=== PATIENT | female | born 1960 | race Caucasian/White ===

== ENCOUNTER → 2022-07-30 13:58 | Outpatient (BNVA) | payer OTHER, SELFPAY | PROVIDERS: PCP Internal Medicine; Visit Provider Nurse Practitioner Family | DX: M51.36 Other intervertebral disc degeneration, lumbar region (principal) ==

== ENCOUNTER 2022-09-02 14:48 | Outpatient (REF) | payer OTHER, SELFPAY ==
--- NOTE | ~2022-09-02 | MR_ITS ---
EXAMINATION: MR LUMBAR SPINE WITHOUT CONTRAST CLINICAL INFORMATION: Right leg radiculopathy and low back pain. COMPARISON: None. TECHNIQUE: Multiplanar, multisequence imaging was obtained. FINDINGS: VERTEBRAL BODIES AND PARASPINAL STRUCTURES: There is a mild leftward curvature of the lumbar spine. The marrow signal is homogeneous. There is fgck-cx-yhpxpzqn disc space narrowing and reduced intradiscal signal at the L2-L3 level. No compression fractures or subluxations are seen. No marrow or soft tissue edema is identified. The paraspinal soft tissues appear normal. CONUS MEDULLARIS AND CAUDA EQUINE: The distal cord, conus tip, and cauda equina nerve roots are normal. SPINAL LEVELS: L1-L2: Small left paracentral disc protrusion. No nerve root impingement, central canal stenosis, or foraminal narrowing. L2-L3: Moderate loss of disc height and mild disc bulge with endplate spurring. No central canal stenosis or significant foraminal encroachment. Mild facet arthropathy. Very mild endplate edema visible. L3-L4: Rsyb-yt-dzqlamak facet arthropathy and very mild disc bulge without central canal stenosis. Mild bilateral foraminal narrowing. L4-L5: Moderate facet arthropathy and minimal annular bulge. No central canal stenosis or foraminal narrowing. L5-S1: No disc pathology. Severe facet arthrosis. No central canal stenosis or foraminal narrowing. MR/MR lumbar spine wo con IMPRESSION: Small left paracentral disc protrusion at the L1-L2 level. Moderate loss of disc height at the L2-L3 level with very mild endplate edema, a mild disc bulge, and endplate spurring. No central canal stenosis. Moderate facet arthropathy at the L4-L5 level and severe facet arthropathy at the L5-S1 level.
== END 2022-09-02 14:49 | disposition home or self-care (01) ==
LOC: HO.MRI 14:48
PROVIDERS: Visit Provider Nurse Practitioner Family
DX: M47.26 Other spondylosis with radiculopathy, lumbar region (principal); M54.41 Lumbago with sciatica, right side; M51.36 Other intervertebral disc degeneration, lumbar region; G89.29 Other chronic pain
CPT/HCPCS: 72148

== ENCOUNTER 2022-10-16 06:09 | Outpatient (REF) | payer OTHER, SELFPAY ==
--- NOTE | ~2022-10-16 | FL_ITS ---
EXAMINATION: XR FLUOROSCOPY WITH IMAGES CLINICAL INFORMATION: M47.816 - Spondylosis without myelopathy or radiculopathy, lumbar region COMPARISON: MR lumbar spine 09/02/2022 TECHNIQUE: Fluoroscopy Supervised By: Dr. Petey Alicea. Fluoroscopy Time: 0.2 minutes. Cumulative Dose: 7.2 mGy. DAP: 0.754 Gycm2. Images: 1. FINDINGS: There are spinal needles overlying the outer right L3, L4, and L5 neural foramen. There is contrast seen in the respective nerve sheaths. Some early transforaminal epidural extension is suggested. No visible vascular communication. FL/FL guidance in treatment room IMPRESSION: Fluoroscopy for pain management procedures.
== END 2022-10-16 06:10 | disposition home or self-care (01) ==
LOC: CF 06:09
PROVIDERS: Visit Provider Internal Medicine
DX: M47.816 Spondylosis without myelopathy or radiculopathy, lumbar region (principal)
CPT/HCPCS: 64493; 64494

== ENCOUNTER → 2022-10-18 10:07 | Outpatient (BNVA) | payer OTHER, SELFPAY | PROVIDERS: PCP Internal Medicine; Visit Provider Nurse Practitioner Family | DX: Z13.89 Encounter for screening for other disorder (principal) ==

== ENCOUNTER 2023-01-01 10:45 | Day surgery (SDC) | payer OTHER, SELFPAY ==
--- NOTE | ~2023-01-01 | FL_ITS ---
EXAMINATION: XR FLUOROSCOPY WITH IMAGES CLINICAL INFORMATION: Sprint L5 right. COMPARISON: None available. TECHNIQUE: Fluoroscopy Supervised By: Dr. Alicea. Fluoroscopy Time: 0.1 minute. Cumulative Dose: 7.76 mGy. DAP: 1.15 Gycm2. Images: 2. FINDINGS: Images demonstrate probe placement adjacent to the right lateral L5 vertebrae. FL/FL guidance in OR IMPRESSION: Fluoroscopy guidance for pain management procedure.
[2023-01-01 11:14] VITALS: BMI 38.7
[2023-01-01 13:33] VITALS: BP 137/69; PULSE 77; RESP 16; TEMP 36.4; O2SAT 94
--- NOTE | 2023-01-01 16:28 | P.BOP_ITS ---
Brief Operative Note Date of Service: 01/01/23 Pre-op diagnosis: Lumbar spondylosis, chronic intractable low back pain Post-op diagnosis: same Procedure: Temporary right L4 medial branch nerve stimulator placement Implants: Sprint temporary PNS system Surgeon: Petey Alicea MD Anesthesia: local Was an Diabetes Territory Manager used for this Procedure?: No Estimated blood loss (mL): 1 Pathology: none sent Condition: stable Disposition: same day
--- NOTE | 2023-01-01 16:28 | MHC.SHP ---
Pre-Procedural Eval Section A Date of Service: 01/01/23 The patient is an INPATIENT: No Changes since office visit: Yes Patient answered all questions The History & Physical has been completed within 30 days and I have reviewed it.: Yes Section B Chief Complaint: Spondylosis without myelopathy or radiculopathy, Relevant Family History (Specify if Yes): No Relevant Social History: Other (specify) Present Medications: see Short Stay Collaborative assessment Medical History: No relevant PMH History of Previous Operations: No relevant previous surgery Allergies: Allergies Allergy/AdvReac Type Severity Reaction Status Date / Time aspirin AdvReac Gastrointestinal Verified 10/18/22 10:08 Upset morphine AdvReac Vomiting Verified 10/18/22 10:08 Review of Systems Sugical H&P ROS: Negative: Constitution, Cardiovascular and Respiratory Exam Surgical H&P Exam: Normal: HEENT, Normal: Heart and Normal: Lungs Plan Diagnosis/Plan: Unchanged I have reviewed the history and physical and performed a pertinent physical examination on my patient. No changes have occurred unless specified. Time Spent With Patient Time: Total time managing care of this patient today ____ minutes.
--- NOTE | 2023-01-01 16:28 | W.PM.OPN ---
Operative Note Operative Note Date of Service: 01/01/23 Narrative: Lumbar Medial Branch Nerve Stimulation Lead Placement, SPR (Sprint) System, Right L3 ? After the risks, benefits and alternatives were discussed with the patient and informed consent was obtained, patient was placed in the prone position and padded to foster comfort. The skin overlying the lumbosacral spine was prepped and draped in sterile fashion. Fluoroscopy was used to identify the spinous process and lamina in the center of the patient?s region of pain. After identifying and marking the intended target along the course of the medial branch nerve, the skin around the planned entry point and the subcutaneous tissues were injected with lidocaine 1%. An introducer needle and stimulating probe were assembled, inserted and advanced along the intended course of the medial branch nerve as it traverses the lamina medial and inferior to the zygapophyseal joint, taking care to maintain the proper depth of insertion as the introducer is advanced under fluoroscopic guidance. The introducer needle was delivered to a location in proximity to the nerve. Multiple stimulation parameters were used to deliver stimulation to the target medial branch nerve in concert with stimulating at multiple positions around the nerve. Nerve target acquisition was confirmed noting generation of paresthesias in the paravertebral regions corresponding to the level being stimulated. Various electrical parameter combinations were tested, and the lead location was adjusted (physically relocated) until the patient indicated paresthesia/muscle tension overlapping the distribution of the patient?s typical region of pain. The stimulating probe was removed from the introducer and a percutaneous lead was guided through the needle and delivered to a location in similar proximity to the nerve. Final location was verified with electrical stimulation and documented with fluoroscopy. The introducer needle was removed, and the exposed end of the percutaneous lead was attached to an external stimulator unit. Various electrical parameter combinations were again tested until the patient indicated paresthesia or muscle tension overlapping the distribution of the patient?s typical region of pain. After confirming that lead impedance was in the normal range, the external unit was detached, the needle was removed, and the lead was anchored at the skin. The lead was threaded into the connector block and electrical continuity and desired patient response was confirmed. The connector block was attached to the external stimulator unit. The site was covered with a sterile occlusive dressing. The patient was observed for stability of vital signs and comfort.
== END 2023-01-01 14:24 | disposition home or self-care (01) ==
PROVIDERS: PCP Internal Medicine; Visit Provider Internal Medicine
PROC: (CPT 64555; principal; 2023-01-01 11:50)
DX: M47.816 Spondylosis without myelopathy or radiculopathy, lumbar region (principal); G89.29 Other chronic pain; M54.41 Lumbago with sciatica, right side; M51.36 Other intervertebral disc degeneration, lumbar region; M54.16 Radiculopathy, lumbar region; J45.909 Unspecified asthma, uncomplicated; E11.9 Type 2 diabetes mellitus without complications; I10 Essential (primary) hypertension; E78.5 Hyperlipidemia, unspecified; E55.9 Vitamin D deficiency, unspecified; E66.9 Obesity, unspecified; Z68.38 Body mass index [BMI] 38.0-38.9, adult; L65.8 Other specified nonscarring hair loss; Z88.8 Allergy status to other drugs, medicaments and biological substances
CPT/HCPCS: 64555; C1778

== ENCOUNTER → 2023-01-07 11:24 | Outpatient (BNVA) | payer OTHER, SELFPAY | PROVIDERS: PCP Internal Medicine; Visit Provider Nurse Practitioner Family ==

== ENCOUNTER 2023-02-12 06:05 | Outpatient (REF) | payer OTHER, SELFPAY ==
--- NOTE | ~2023-02-12 | FL_ITS ---
EXAMINATION: XR FLUOROSCOPY WITH IMAGES CLINICAL INFORMATION: Sacrococcygeal disorders, not elsewhere classified. Right SI joint injection. COMPARISON: None available. TECHNIQUE: Fluoroscopy Supervised By: Dr. Petey Alicea. Fluoroscopy Time: 0.2 minutes. Cumulative Dose: 7.62 mGy. DAP: 0.813 Gycm2. Images: 2. FINDINGS: 2 digital images revealing needle position of the right SI joint for pain management. No gross bony abnormality. FL/FL guidance in treatment room IMPRESSION: Fluoroscopy was provided to referring physician for right SI joint pain management.
== END 2023-02-12 06:06 | disposition home or self-care (01) ==
LOC: CF 06:05
PROVIDERS: Visit Provider Internal Medicine
DX: M53.3 Sacrococcygeal disorders, not elsewhere classified (principal)
CPT/HCPCS: 27096

== ENCOUNTER 2023-02-12 10:08 | Outpatient (AMB) | payer OTHER, SELFPAY ==
[2023-02-12 10:31] VITALS: BP 120/78; PULSE 66; RESP 14; O2SAT 97
--- NOTE | 2023-02-12 10:31 | A.OFFVIS_ITS ---
Intake Vital Signs 02/12/23 10:31 BP 120/78 Blood Pressure Location Lt radial Position Sitting Respiration 14 Pulse 66 Pulse Source Pulse Oximeter Pulse Oximetry (%) 97 Oxygen Delivery Method Room Air Intake Visit Reasons: left theraputic SIJ inj Allergies aspirin Adverse Reaction (Verified 02/12/23 10:31) Gastrointestinal Upset morphine Adverse Reaction (Verified 02/12/23 10:31) Vomiting HPI left theraputic SIJ inj HPI Details Patient presents for scheduled procedure. Denies any recent cough, cold, infection, fever or other significant changes in medical history since last office visit. Patient requests right sided injection as that is her painful side. She does not want her left side injected. A consent for the correct side as per patient's wishes was obtained. [facility] Medical History Anxiety Asthma Chronic low back pain with right-sided sciatica Chronic pain of left elbow Chronic right shoulder pain Dyspepsia Dysphagia Hyperlipidemia Hypertension Lumbar degenerative disc disease Non-scarring alopecia Obesity (BMI 30-39.9) Plantar fasciitis, bilateral Seborrheic dermatitis Trichorrhexis nodosa Type 2 diabetes mellitus without complication Vitamin D deficiency Surgical History H/O colonoscopy (~05/01/12) H/O tubal ligation History of D&C (~2000) History of incisional hernia repair (05/25/15) Physical Exam Vital Signs: Last Vital Signs Pulse 66 02/12/23 10:31 Resp 14 02/12/23 10:31 BP 120/78 02/12/23 10:31 Pulse Ox 97 02/12/23 10:31 Oxygen Delivery Method Room Air 02/12/23 10:31 Office Procedures Joint Injection/Drain Joint Injection/Drain Details: Sacroiliac Joint Injection, Right The procedure, its benefits, and its risks were explained and written informed consent was obtained from the patient. Immediately prior to starting the procedure, a time-out safety check was conducted. The patient's identification, procedure name, procedure site, and procedure laterality were confirmed with the patient. ? Patient was placed prone on the fluoroscopy table and the lumbosacral area was prepped using ChloraPrep and draped with sterile drapein standard fashion. The C-arm was rotated in a contralateral oblique fashion until the medial border of the iliac crest no longer foreshadowed the posterior sacroiliac joint line. The skin and subcutaneous tissue was anesthetized using 1 mL of 0.75% plain lidocaine with 1.5-inch 25-gauge needle in the middle region of the joint line.? A 5-inch 22-gauge spinal needle with small bend on the tip was slowly advanced towards the joint line, coaxial to the x-ray beam. Once bony content was obtained, the needle was easily slid into the intra-articular space.? Intra- articular needle position was confirmed using lateral fluoroscopy.? A total volume of 2.5mL of solution containing 40 mg Depomedrol and rest 0.5% of bupivacaine was injected intra-articularly. The stylet was reinserted and needle was removed. The patient tolerated the procedure well. Patient denied any lower extremity weakness or numbness. Patient was observed for 30 min and was discharged after fulfilling the standard discharge criteria. Coding 09111 - Sacroiliac Procedure code (CPT) selection complete Assessment & Plan Assessment & Plan (1) Sacroiliac joint pain: Code(s): M53.3 - Sacrococcygeal disorders, not elsewhere classified Plan Patient is status post right SIJ injection. Patient tolerated procedure well and was discharged home in stable condition with discharge instructions. All questions were answered. We will follow-up via telephone or in clinic to assess response to therapy. A follow-up appointment was made during today's visit. Orders: Orders FL guidance in treatment room Today M53.3 - Sacrococcygeal disorders, not elsewhere classified Coding Level of Care Code Procedure Only Diagnoses Sacroiliac joint pain M53.3 CPT Codes Coding - Joint 9: 94127 - Sacroiliac ([id number])
== END 2023-02-12 11:29 | disposition home or self-care (01) ==
PROVIDERS: PCP Internal Medicine; Visit Provider Internal Medicine
DX: M53.3 Sacrococcygeal disorders, not elsewhere classified (principal)
CPT/HCPCS: 27096

== ENCOUNTER 2023-02-26 07:46 | Day surgery (SDC) | payer OTHER, SELFPAY ==
--- NOTE | ~2023-02-26 | FL_ITS ---
EXAMINATION: XR FLUOROSCOPY WITH IMAGES CLINICAL INFORMATION: L3 medial branch SPRINT, right. COMPARISON: None available. TECHNIQUE: Fluoroscopy Supervised By: Dr. Petey Alicea. Fluoroscopy Time: 0.0 minutes (less than 10 seconds). Cumulative Dose: 2.60 mGy. DAP: 0.307 Gycm2. Images: 3. FINDINGS: Images demonstrate probe or lead projecting over the right posterior lateral lower lumbar spine. FL/FL guidance in OR IMPRESSION: Fluoroscopic guidance for pain management procedure.
[2023-02-26 08:21] VITALS: BMI 38.4
--- NOTE | 2023-02-26 09:55 | MHC.SHP ---
Pre-Procedural Eval Section A Date of Service: 02/26/23 The patient is an INPATIENT: No Changes since office visit: Yes Patient answered all questions The History & Physical has been completed within 30 days and I have reviewed it.: No Section B Chief Complaint: Intractable back pain Relevant Family History (Specify if Yes): No Relevant Social History: Other (specify) Present Medications: see Short Stay Collaborative assessment Medical History: No relevant PMH History of Previous Operations: No relevant previous surgery Allergies: Allergies Allergy/AdvReac Type Severity Reaction Status Date / Time aspirin AdvReac Gastrointestinal Verified 02/12/23 10:31 Upset morphine AdvReac Vomiting Verified 02/12/23 10:31 Review of Systems Sugical H&P ROS: Negative: Constitution, Cardiovascular and Respiratory Exam Surgical H&P Exam: Normal: HEENT, Normal: Heart and Normal: Lungs Plan Diagnosis/Plan: Unchanged I have reviewed the history and physical and performed a pertinent physical examination on my patient. No changes have occurred unless specified. Proceed with replacement of right L3 medial branch temporary nerve stimulator. Time Spent With Patient Time: Total time managing care of this patient today ____ minutes.
[2023-02-26 09:56] VITALS: BP 136/74; PULSE 65; RESP 20; TEMP 36.5; O2SAT 95
--- NOTE | 2023-02-26 09:56 | P.BOP_ITS ---
Brief Operative Note Date of Service: 02/26/23 Pre-op diagnosis: Lumbar spondylosis, intractable low back pain Post-op diagnosis: same Procedure: Temporary right L3 medial branch nerve stimulator placement Implants: Sprint temporary PNS system Surgeon: Petey Alicea MD Anesthesia: local Was an Information Security Associate used for this Procedure?: No Estimated blood loss (mL): 1 Pathology: none sent Condition: stable Disposition: same day
--- NOTE | 2023-02-26 09:57 | W.PM.OPN ---
Operative Note Operative Note Date of Service: 02/26/23 Narrative: Lumbar Medial Branch Nerve Stimulation Lead Placement, SPR (Sprint) System, Right L3 medial branch ? After the risks, benefits and alternatives were discussed with the patient and informed consent was obtained, patient was placed in the prone position and padded to foster comfort. The skin overlying the lumbosacral spine was prepped and draped in sterile fashion. Fluoroscopy was used to identify the spinous process and lamina in the center of the patient?s region of pain. After identifying and marking the intended target along the course of the medial branch nerve, the skin around the planned entry point and the subcutaneous tissues were injected with lidocaine 1%. An introducer needle and stimulating probe were assembled, inserted and advanced along the intended course of the medial branch nerve as it traverses the lamina medial and inferior to the zygapophyseal joint, taking care to maintain the proper depth of insertion as the introducer is advanced under fluoroscopic guidance. The introducer needle was delivered to a location in proximity to the nerve. Multiple stimulation parameters were used to deliver stimulation to the target medial branch nerve in concert with stimulating at multiple positions around the nerve. Nerve target acquisition was confirmed noting generation of paresthesias in the paravertebral regions corresponding to the level being stimulated. Various electrical parameter combinations were tested, and the lead location was adjusted (physically relocated) until the patient indicated paresthesia/muscle tension overlapping the distribution of the patient?s typical region of pain. The stimulating probe was removed from the introducer and a percutaneous lead was guided through the needle and delivered to a location in similar proximity to the nerve. Final location was verified with electrical stimulation and documented with fluoroscopy. The introducer needle was removed, and the exposed end of the percutaneous lead was attached to an external stimulator unit. Various electrical parameter combinations were again tested until the patient indicated paresthesia or muscle tension overlapping the distribution of the patient?s typical region of pain. After confirming that lead impedance was in the normal range, the external unit was detached, the needle was removed, and the lead was anchored at the skin. The lead was threaded into the connector block and electrical continuity and desired patient response was confirmed. The connector block was attached to the external stimulator unit. The site was covered with a sterile occlusive dressing. The patient was observed for stability of vital signs and comfort.
== END 2023-02-26 10:35 | disposition home or self-care (01) ==
PROVIDERS: PCP Internal Medicine; Visit Provider Internal Medicine
PROC: (CPT 64555; principal; 2023-02-26 09:30)
DX: M54.16 Radiculopathy, lumbar region (principal); G89.29 Other chronic pain; M54.41 Lumbago with sciatica, right side; M47.816 Spondylosis without myelopathy or radiculopathy, lumbar region; F41.1 Generalized anxiety disorder; J45.909 Unspecified asthma, uncomplicated; I10 Essential (primary) hypertension; E11.9 Type 2 diabetes mellitus without complications; Z79.84 Long term (current) use of oral hypoglycemic drugs; Z79.899 Other long term (current) drug therapy; Z88.8 Allergy status to other drugs, medicaments and biological substances
CPT/HCPCS: 64555; C1778

== ENCOUNTER → 2023-02-26 07:46 | Outpatient (BNV) | payer OTHER, SELFPAY | PROVIDERS: PCP Internal Medicine; Visit Provider Internal Medicine | DX: M54.16 Radiculopathy, lumbar region (principal) | CPT/HCPCS: 64555 ==

== ENCOUNTER 2023-03-03 12:47 | Outpatient (AMB) | payer OTHER, SELFPAY ==
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
[2023-03-03 13:13] VITALS: BP 176/86; PULSE 88; O2SAT 96; BMI 38.5
== END 2023-03-03 13:27 | disposition home or self-care (01) ==
PROVIDERS: PCP Internal Medicine; Visit Provider Nurse Practitioner Family
DX: M51.36 Other intervertebral disc degeneration, lumbar region (principal); M47.26 Other spondylosis with radiculopathy, lumbar region; E66.9 Obesity, unspecified; Z68.38 Body mass index [BMI] 38.0-38.9, adult
CPT/HCPCS: 99024

== ENCOUNTER → 2023-03-03 12:47 | Outpatient (BNVA) | payer OTHER, SELFPAY | PROVIDERS: PCP Internal Medicine; Visit Provider Nurse Practitioner Family ==

== ENCOUNTER 2023-03-20 13:25 | Outpatient (AMB) | payer OTHER, SELFPAY ==
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
[2023-03-20 13:37] VITALS: BP 183/89; PULSE 78; TEMP 36.1; BMI 39.1
== END 2023-03-20 13:48 | disposition home or self-care (01) ==
PROVIDERS: PCP Internal Medicine; Visit Provider Nurse Practitioner Family
DX: M51.36 Other intervertebral disc degeneration, lumbar region (principal); M47.816 Spondylosis without myelopathy or radiculopathy, lumbar region; M53.3 Sacrococcygeal disorders, not elsewhere classified
CPT/HCPCS: 99214

== ENCOUNTER → 2023-03-20 13:25 | Outpatient (BNVA) | payer OTHER, SELFPAY | PROVIDERS: PCP Internal Medicine; Visit Provider Nurse Practitioner Family ==

== ENCOUNTER 2023-05-21 06:10 | Outpatient (REF) | payer OTHER, SELFPAY ==
--- NOTE | ~2023-05-21 | FL_ITS ---
EXAMINATION: XR FLUOROSCOPY WITH IMAGES CLINICAL INFORMATION: Spondylosis without myelopathy or radiculopathy, lumbar region. COMPARISON: None available. TECHNIQUE: Fluoroscopy Supervised By: Dr. Petey Alicea. Fluoroscopy Time: 9.2 second. Cumulative Dose: 2.8129 mGy. DAP: 0.6861 Gycm2. Images: 2. FINDINGS: Images demonstrate needle placement and contrast injection adjacent to the right lateral L3-L4 and L5 vertebrae FL/FL guidance in treatment room IMPRESSION: Fluoroscopy guidance for pain management procedure.
== END 2023-05-21 06:11 | disposition home or self-care (01) ==
LOC: CF 06:10
PROVIDERS: Visit Provider Internal Medicine
DX: M47.816 Spondylosis without myelopathy or radiculopathy, lumbar region (principal)
CPT/HCPCS: 64493; 64494; J2795; Q9967

== ENCOUNTER 2023-05-21 09:58 | Outpatient (AMB) | payer OTHER, SELFPAY ==
[2023-05-21 10:03] VITALS: BP 110/70; PULSE 63; RESP 12; O2SAT 98
--- NOTE | 2023-05-21 10:03 | MHC.OFFVIS ---
Intake Vital Signs 05/21/23 10:03 05/21/23 10:52 BP 110/70 116/68 Blood Pressure Location Rt radial Rt brachial Position Sitting Sitting Respiration 12 14 Pulse 63 81 Pulse Source Pulse Oximeter Pulse Oximeter Pulse Oximetry (%) 98 97 Oxygen Delivery Method Room Air Room Air Intake Visit Reasons: right Dx L3-L4-L5 MBB Allergies aspirin Adverse Reaction (Verified 05/21/23 10:04) Gastrointestinal Upset morphine Adverse Reaction (Verified 05/21/23 10:04) Vomiting HPI right Dx L3-L4-L5 MBB HPI Details Patient presents for scheduled procedure. Denies any recent cough, cold, infection, fever or other significant changes in medical history since last office visit. FORMERLY [facility], [facility]1983 Medical History Anxiety Asthma Chronic low back pain with right-sided sciatica Chronic pain of left elbow Chronic right shoulder pain Dyspepsia Dysphagia Hyperlipidemia Hypertension Lumbar degenerative disc disease Non-scarring alopecia Obesity (BMI 30-39.9) Plantar fasciitis, bilateral Seborrheic dermatitis Trichorrhexis nodosa Type 2 diabetes mellitus without complication Vitamin D deficiency Surgical History H/O colonoscopy (~05/01/12) H/O tubal ligation History of D&C (~2000) History of incisional hernia repair (05/25/15) Social History Patient Tobacco Use Status: Never used Tobacco Physical Exam Vital Signs: Last Vital Signs Pulse 63 05/21/23 10:03 Resp 12 05/21/23 10:03 BP 110/70 05/21/23 10:03 Pulse Ox 98 05/21/23 10:03 Oxygen Delivery Method Room Air 05/21/23 10:03 Office Procedures Lumbar/Sacral Facet Inj Details: Lumbar Medial Branch Block, Right L3, L4 medial branches and L5 Dorsal Ramus (2 levels, 3 nerves) After obtaining written consent, pre-procedure blood pressure and pulse were recorded and are in the nursing record for review. The patient was placed in a prone position. The respective lumbosacral area was prepped with chloraprep and draped in sterile fashion. The skin over the target medial branch nerves was anesthetized with 0.5% lidocaine. A 22 gauge 5 inch needle was inserted into the target medial branch nerve under fluoroscopic guidance. No paresthesias were elicited with needle placement and aspiration was negative for blood and CSF. Next, 0.2cc of omnipaque 180 was injected to verify positioning. Next 0.5 ml 0.5% bupivicaine was injected (0.5cc total per level). The identical procedure was performed at the remaining levels. The skin was cleansed and a sterile bandage was applied. Following the procedure the patient's vital signs were stable. The patient tolerated the procedure well and no complications were encountered. Following the procedure the patient's vital signs were stable. The patient was discharged home in good condition with post-procedural instructions. Time Out: Immediately prior to the procedure, the following was verbally confirmed that there is a signed consent form and that the correct patient, planned procedure, site and side are consistent with documentation and that necessary equipment and/or blood products are available prior to the start of the case. Complications: none EBL: <5 cc 63008 - second level, with Fluoroscopy Procedure code (CPT) selection complete Assessment & Plan Assessment & Plan (1) Lumbar spondylosis: Code(s): M47.816 - Spondylosis without myelopathy or radiculopathy, lumbar region Plan Patient is status post right L3, L4, L5 MBBs. Patient tolerated procedure well and was discharged home in stable condition with discharge instructions. All questions were answered. We will follow-up via telephone or in clinic to assess response to therapy. A follow-up appointment was made during today's visit. Orders: Orders FL guidance in treatment room Today M47.816 - Spondylosis without myelopathy or radiculopathy, lumbar region Coding Level of Care Code Procedure Only Diagnoses Lumbar spondylosis M47.816 CPT Codes Facet Injection-Lumbar/Sacral - CPT: 94380 - second level, with Fluoroscopy ([id number])
[2023-05-21 10:52] VITALS: BP 116/68; PULSE 81; RESP 14; O2SAT 97
== END 2023-05-21 10:47 | disposition home or self-care (01) ==
LOC: HO.PMCPRC 09:58
PROVIDERS: PCP Internal Medicine; Visit Provider Internal Medicine
DX: M47.816 Spondylosis without myelopathy or radiculopathy, lumbar region (principal)
CPT/HCPCS: 64493; 64494

== ENCOUNTER 2023-05-23 14:34 | Outpatient (AMB) | payer OTHER, SELFPAY ==
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
[2023-05-23 14:45] VITALS: BP 163/74; PULSE 85; O2SAT 97; BMI 38.7
== END 2023-05-23 15:06 | disposition home or self-care (01) ==
PROVIDERS: PCP Internal Medicine; Visit Provider Nurse Practitioner Family
DX: M51.36 Other intervertebral disc degeneration, lumbar region (principal); M47.816 Spondylosis without myelopathy or radiculopathy, lumbar region; M53.3 Sacrococcygeal disorders, not elsewhere classified
CPT/HCPCS: 99213

== ENCOUNTER → 2023-05-23 14:34 | Outpatient (BNVA) | payer OTHER, SELFPAY | PROVIDERS: PCP Internal Medicine; Visit Provider Nurse Practitioner Family ==

== ENCOUNTER 2023-07-23 09:12 | Day surgery (SDC) | payer OTHER, SELFPAY ==
[2023-07-17 13:56] VITALS: BMI 38.7
--- NOTE | ~2023-07-23 | FL_ITS ---
EXAMINATION: XR FLUOROSCOPY WITH IMAGES CLINICAL INFORMATION: L3, L4, L5 medial branch RFA. COMPARISON: None available. TECHNIQUE: Fluoroscopy Supervised By: Dr. Petey Alicea. Fluoroscopy Time: 0.3 minutes. Cumulative Dose: 14.4 mGy. DAP: 1.90 Gycm2. Images: 3. FINDINGS: Images demonstrate probe placement and contrast injection adjacent to the right lateral L3, L4 and L5 vertebrae FL/FL guidance in OR IMPRESSION: Fluoroscopy guidance for right L3, L4 and L5 medial branch RFA.
[2023-07-23 10:24] VITALS: BP 141/61; PULSE 86; RESP 16; TEMP 36.4; O2SAT 96
[2023-07-23] MEDS: Albuterol Sulfate (0.083%) 2.5 MG/3 ML VIAL.NEB INHALE (10:26)
[2023-07-23 10:28] VITALS: PULSE 87; RESP 16; O2SAT 98
[2023-07-23] MEDS: Lactated Ringers 1,000 ML 80 ML IVCONT (10:29)
[2023-07-23 10:30] LABS: Glucose, Whole Blood 99 mg/dL (60-115)
--- NOTE | 2023-07-23 12:22 | MHC.SHP ---
Pre-Procedural Eval Section A Date of Service: 07/23/23 The patient is an INPATIENT: No Changes since office visit: Yes Patient answered all questions The History & Physical has been completed within 30 days and I have reviewed it.: No Section B Chief Complaint: Spondylosis without myelopathy or radiculopathy, Relevant Family History (Specify if Yes): No Relevant Social History: None Present Medications: see Short Stay Collaborative assessment Medical History: No relevant PMH History of Previous Operations: No relevant previous surgery Allergies: Allergies Allergy/AdvReac Type Severity Reaction Status Date / Time aspirin AdvReac Gastrointestinal Verified 05/23/23 14:44 Upset morphine AdvReac Vomiting Verified 05/23/23 14:44 Review of Systems Sugical H&P ROS: Negative: Constitution, Cardiovascular and Respiratory Exam Surgical H&P Exam: Normal: HEENT, Normal: Heart and Normal: Lungs Plan Diagnosis/Plan: Unchanged I have reviewed the history and physical and performed a pertinent physical examination on my patient. No changes have occurred unless specified. Time Spent With Patient Time: Total time managing care of this patient today ____ minutes.
--- NOTE | 2023-07-23 12:43 | P.CONAN_ITS ---
[facility] Active Problems Active Problems: All Active Problems (Updated 02/06/23 @ 11:23 by Margie Borrero, RV REPAIRER, CHIEF OF STAFF DOCTOR) Sacroiliac joint pain (Acute) Left knee pain (Acute) Lumbar back pain with radiculopathy affecting right lower extremity (Acute) Lumbar spondylosis (Acute) Chronic pain of left elbow (Acute) Chronic right shoulder pain (Acute) Obesity (BMI 30-39.9) (Acute) Chronic low back pain with right-sided sciatica (Acute) Lumbar degenerative disc disease (Acute) Past Medical History Medical History Chronic pain of left elbow Chronic right shoulder pain Asthma Non-scarring alopecia Seborrheic dermatitis Trichorrhexis nodosa Plantar fasciitis, bilateral Anxiety Hyperlipidemia Hypertension Vitamin D deficiency Obesity (BMI 30-39.9) Chronic low back pain with right-sided sciatica Type 2 diabetes mellitus without complication Dyspepsia Dysphagia Lumbar degenerative disc disease Family History Family history of problems with anesthesia: No Surgical History Surgical History History of surgery H/O colonoscopy (~05/01/12) H/O tubal ligation History of D&C (~2000) History of incisional hernia repair (05/25/15) History of Problems with Anesthesia: No Social History Social History Patient Tobacco Use Status: Never used Tobacco Second Hand Smoke Exposure: No Use of substances other than those prescribed or required for medical reasons: No Are you DNR?: No Advance Directives: No Advance Directives Information Provided: Yes Advance Directives on File: No Meds Allergies Allergy/AdvReac Type Severity Reaction Status Date / Time aspirin AdvReac Gastrointestinal Verified 05/23/23 14:44 Upset morphine AdvReac Vomiting Verified 05/23/23 14:44 Active Medications: Current Medications Lactated Ringer's (Lr) 1,000 mls @ 80 mls/hr IVCONT .[id number] ABHINAV Last Admin: 07/23/23 10:29 Dose: 80 mls/hr Home Medications Medication Instructions Recorded Confirmed Last Taken Type albuterol sulfate 90 mcg/actuation 1 puff inhalation Q4H PRN 07/30/22 07/17/23 Unknown History aerosol inhaler Shortness Of Breath Or Wheezing atorvastatin 20 mg tablet 20 mg PO DAILY 07/30/22 07/17/23 01/01/23 History diltiazem HCl 300 mg 300 mg PO DAILY 07/30/22 07/17/23 01/01/23 History capsule,extended release 24 hr losartan 100 mg tablet 100 mg PO DAILY 07/30/22 07/17/23 01/01/23 History losartan 50 mg tablet 50 mg PO DAILY 07/30/22 01/01/23 01/01/23 History metformin 500 mg tablet,extended 500 mg PO DAILY 07/30/22 07/17/23 01/01/23 History release 24 hr omeprazole 40 mg capsule,delayed 40 mg PO DAILY 07/30/22 07/17/23 01/01/23 History release sertraline 50 mg tablet 50 mg PO DAILY 07/30/22 07/17/23 01/01/23 History spironolactone 25 0.5 tab PO DAILY 01/07/23 07/17/23 Unknown History mg-hydrochlorothiazide 25 mg tablet sucralfate 1 gram tablet 1 g PO QID 01/07/23 07/17/23 Unknown History calcitriol 0.25 mcg capsule 0.25 mcg PO DAILY 05/23/23 07/17/23 Unknown History Exam Height,Weight and Vital Signs: Height 5 ft 6 in Weight 108.862 kg Last Vital Signs Temp 97.5 F 07/23/23 10:24 Pulse 87 07/23/23 10:28 Resp 16 07/23/23 10:28 BP 141/61 H 07/23/23 10:24 Pulse Ox 96 07/23/23 10:24 O2 Del Method Room Air 07/23/23 10:24 Pertinent Lab Results Pertinent Lab Results: Laboratory Tests 07/23/23 10:26 POC Glucose 99 Airway Mallampati Class: III TM Dist: >3cm Neck ROM: Full Loose/Missing/Broken Teeth: Yes, Upper and Lower Heart: rrr Lungs: clear Assessment and Plan Final Anesthetic Review Family History of Problems with Anesthesia: No History of Problems with Anesthesia: No ASA Class: III Final Preanesthetic Review: No Changes in Pt Med Stat, Meds/Allgs Chart Reviewed, Consent Obtained/Reviewed and Anes Risks/Benef Reviewed Patient Risk: Intermediate Procedure Risk: Low Anesthetic Plan Anesthetic Plan: MAC: Disposition: Standard PACU
[2023-07-23 13:44] VITALS: BP 131/73; PULSE 82; RESP 20; TEMP 37.3; O2SAT 94
[2023-07-23 13:59] VITALS: BP 140/74; PULSE 85; RESP 18; TEMP 36.6; O2SAT 98
[2023-07-23 14:14] VITALS: BP 150/74; PULSE 87; RESP 18; TEMP 36.6; O2SAT 98
--- NOTE | 2023-07-23 15:42 | PM.OP ---
Brief Operative Note Date of Service: 07/23/23 Pre-op diagnosis: Lumbar spondylosis Post-op diagnosis: same Procedure: Radiofrequency lesioning of the right L3, L4 medial branches and L5 dorsal ramus Implants: None Surgeon: Petey Alicea MD Anesthesia: MAC Was an Client Specialist used for this Procedure?: No Estimated blood loss (mL): 1 Pathology: none sent Condition: stable Disposition: PACU
--- NOTE | 2023-07-23 15:43 | P.OP_ITS ---
Operative Note Operative Note Date of Service: 07/23/23 Narrative: Radiofrequency lesioning medial branch nerves, right L3, L4 medial branches and L5 dorsal ramus (L4/5 and L5/S1) (2 levels, 3 nerves) After obtaining written consent, pre-procedure blood pressure and heart rate were stable and recorded in the nursing record. Standard monitors were applied. The patient was placed in the prone position and sedated by the direct care specialist. The lumbar area was prepped with chloraprep and draped in sterile fashion. The skin over the target for each medial branch nerve was anesthetized with 0.5% lidocaine. An 18 gauge 150 mm radiofrequency cannula was advanced to each target site under fluoroscopic guidance. No paresthesias were elicited with needle placement and aspiration was negative for heme and CSF. Impedences were verified under 600 ohms. Motor testing (2 Hz) confirmed needle placement at each site within the appropriate voltage thresholds. Each site was injected with 0.5 ml 2% preservative-free lidocaine. Radiofrequency lesioning was performed for 90 seconds at 80 deg Celcius. The needle was removed, skin cleansed and a sterile bandage was applied. The patient tolerated the procedure well and no complications were encountered. Following the procedure the patient's vital signs were stable. The patient was discharged home in good condition with post- procedural instructions. Time Out: Immediately prior to the procedure, the following was verbally confirmed that there is a signed consent form and that the correct patient, planned procedure, site and side are consistent with documentation and that necessary equipment and/or blood products are available prior to the start of the case. Complications: none EBL: <5 cc
== END 2023-07-23 14:47 | disposition home or self-care (01) ==
PROVIDERS: PCP Internal Medicine; Visit Provider Internal Medicine
PROC: (CPT 64635; principal; 2023-07-23 12:00)
DX: M47.816 Spondylosis without myelopathy or radiculopathy, lumbar region (principal); M51.36 Other intervertebral disc degeneration, lumbar region; G89.29 Other chronic pain; M54.41 Lumbago with sciatica, right side; M53.3 Sacrococcygeal disorders, not elsewhere classified; J45.909 Unspecified asthma, uncomplicated; I10 Essential (primary) hypertension; E78.5 Hyperlipidemia, unspecified; E11.9 Type 2 diabetes mellitus without complications; Z79.84 Long term (current) use of oral hypoglycemic drugs; Z79.899 Other long term (current) drug therapy; Z88.8 Allergy status to other drugs, medicaments and biological substances; Z88.5 Allergy status to narcotic agent
CPT/HCPCS: 64635; 64636; 82947; 94640; J2704; J2795

== ENCOUNTER → 2023-07-23 09:12 | Outpatient (BNV) | payer OTHER, SELFPAY | PROVIDERS: PCP Internal Medicine; Visit Provider Internal Medicine | DX: M47.816 Spondylosis without myelopathy or radiculopathy, lumbar region (principal) | CPT/HCPCS: 64635; 64636 ==

== ENCOUNTER 2023-08-29 10:22 | Outpatient (REF) | payer OTHER, SELFPAY ==
--- NOTE | ~2023-08-29 | XR_ITS ---
EXAMINATION: XR BILATERAL HIPS WITH AP PELVIS CLINICAL INFORMATION: Right hip pain. COMPARISON: None available. TECHNIQUE: AP view of the pelvis and frontal and frog lateral views of each hip were obtained. FINDINGS: No fracture. Hip joint spaces are maintained. Alignment is anatomic. Sacroiliac joints and pubic symphysis are normal. No abnormal soft tissue calcifications. XR/XR hip BI w PEL1V IMPRESSION: Normal pelvis and hips.
== END 2023-08-29 10:23 | disposition home or self-care (01) ==
LOC: HO.XRAY 10:22
PROVIDERS: PCP Internal Medicine; Visit Provider Nurse Practitioner Family
DX: M25.551 Pain in right hip (principal); M25.552 Pain in left hip; M70.61 Trochanteric bursitis, right hip; M70.62 Trochanteric bursitis, left hip
CPT/HCPCS: 73521

== ENCOUNTER 2023-08-29 10:22 | Outpatient (AMB) | payer OTHER, SELFPAY ==
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
[2023-08-29 10:28] VITALS: BP 146/80; PULSE 89; O2SAT 97; BMI 37.1
== END 2023-08-29 10:51 | disposition home or self-care (01) ==
PROVIDERS: PCP Internal Medicine; Visit Provider Nurse Practitioner Family
DX: M70.61 Trochanteric bursitis, right hip (principal); M70.62 Trochanteric bursitis, left hip; M25.551 Pain in right hip; M25.552 Pain in left hip; M51.36 Other intervertebral disc degeneration, lumbar region; M47.816 Spondylosis without myelopathy or radiculopathy, lumbar region; M53.3 Sacrococcygeal disorders, not elsewhere classified
CPT/HCPCS: 99214

== ENCOUNTER 2023-10-23 07:32 | Outpatient (REF) | payer OTHER, SELFPAY ==
--- NOTE | ~2023-10-23 | FL_ITS ---
EXAMINATION: XR FLUOROSCOPY WITH IMAGES CLINICAL INFORMATION: Right hip trochanteric bursitis. COMPARISON: Bilateral hip radiographs dated 08/29/2023. TECHNIQUE: Fluoroscopy Supervised By: Dr. Margie Borrero. Fluoroscopy Time: 0.0 minutes. Cumulative Dose: 3.51 mGy. DAP: 0.0369 mGym2. Images: 2. FINDINGS: The submitted images show an injection needle and injected contrast in the vicinity of the greater trochanter of the proximal right femur. FL/FL guidance in treatment room IMPRESSION: Intraoperative fluoroscopic guidance is provided during right hip pain management procedure. Please see the patient's Operative Report for full procedural details.
== END 2023-10-23 07:33 | disposition home or self-care (01) ==
LOC: CF 07:32
PROVIDERS: Visit Provider Internal Medicine
DX: M70.61 Trochanteric bursitis, right hip (principal); M70.62 Trochanteric bursitis, left hip
CPT/HCPCS: 20610; J2795; J3301; Q9967

== ENCOUNTER 2023-10-23 14:15 | Outpatient (AMB) | payer OTHER, SELFPAY ==
[2023-10-23 14:58] VITALS: BP 132/80; PULSE 87; RESP 18; O2SAT 98; BMI 37.1
--- NOTE | 2023-10-23 14:58 | MHC.OFFVIS ---
Intake Vital Signs 10/23/23 14:58 10/23/23 14:59 Height 5 ft 6 in Weight 230 lb BMI 37.1 BP 132/80 138/88 Blood Pressure Location Lt brachial Lt brachial Position Sitting Sitting Respiration 18 18 Pulse 87 88 Pulse Source Pulse Oximeter Pulse Oximeter Pulse Oximetry (%) 98 98 Oxygen Delivery Method Room Air Room Air Comment Pre-Op Post-Op Intake Visit Reasons: Francisco theraputic GTB inj Allergies aspirin Adverse Reaction (Verified 08/29/23 10:29) Gastrointestinal Upset morphine Adverse Reaction (Verified 08/29/23 10:29) Vomiting HPI Francisco theraputic GTB inj HPI Details Patient presents for scheduled procedure. Denies any recent cough, cold, infection, fever or other significant changes in medical history since last office visit. [facility] Medical History Chronic pain of left elbow Chronic right shoulder pain Asthma Non-scarring alopecia Seborrheic dermatitis Trichorrhexis nodosa Plantar fasciitis, bilateral Anxiety Hyperlipidemia Hypertension Vitamin D deficiency Obesity (BMI 30-39.9) Chronic low back pain with right-sided sciatica Type 2 diabetes mellitus without complication Dyspepsia Dysphagia Lumbar degenerative disc disease Surgical History History of surgery H/O colonoscopy (~05/01/12) H/O tubal ligation History of D&C (~2000) History of incisional hernia repair (05/25/15) Social History Patient Tobacco Use Status: Never used Tobacco Second Hand Smoke Exposure: No Physical Exam Vital Signs: Last Vital Signs Pulse 88 10/23/23 14:59 Resp 18 10/23/23 14:59 BP 138/88 10/23/23 14:59 Pulse Ox 98 10/23/23 14:59 Oxygen Delivery Method Room Air 10/23/23 14:59 BMI result Body Mass Index 37.1 Office Procedures Joint Injection/Drain Joint Injection/Drain Details: Greater Trochanteric Bursa Injection, bilateral After informed written consent was obtained, the patient was placed in the supine position. Pre-procedure oxygen saturation, heart rate, and blood pressure were recorded. The skin was prepped with Chloroprep, and draped in a sterile fashion. With the use of fluroscopy the greater trochanter was identified. With a 25-gauge 1.5 hypodermic needle 1% lidocaine was injected subcutaneously over the entry site. A 22-gauge 3.5 spinal needle was then advanced toward the trochanteric bursa. Once in position, and after negative aspiration, 0.5mL of Omnipaque was injected outlining the bursa followed by injection of 40mg triamcinolone mixed with 0.5% ropivacaine (3mL total). There was no evidence of paresthesias throughout needle placement. The stylet was replaced and then the needle was withdrawn. The same procedure was then repeated on the contralateral side. The patient tolerated the procedure well and there was no evidence of procedural complications. The patient was observed in the procedure room for 20 minutes, vitals were stable, and discharged in stable condition. Coding 69879 - Glenohumeral/Tronchanteric Bursa/Intraarticular Procedure code (CPT) selection complete Assessment & Plan Assessment & Plan (1) Greater trochanteric bursitis of both hips: Code(s): M70.61 - Trochanteric bursitis, right hip; M70.62 - Trochanteric bursitis, left hip Plan Patient is status post bilateral greater trochanteric bursa injections. Patient tolerated procedure well and was discharged home in stable condition with discharge instructions. All questions were answered. We will follow-up via telephone or in clinic to assess response to therapy. A follow-up appointment was made during today's visit. Orders: Orders FL guidance in treatment room Today M70.61 - Trochanteric bursitis, right hip, M70.62 - Trochanteric bursitis, left hip Coding Level of Care Code Procedure Only Diagnoses Greater trochanteric bursitis of both hips M70.61; M70.62 CPT Codes Coding - Joint 7: 08504 - Glenohumeral/Tronchanteric Bursa/Intraarticular ([id number])
[2023-10-23 14:59] VITALS: BP 138/88; PULSE 88; RESP 18; O2SAT 98
== END 2023-10-23 15:00 | disposition home or self-care (01) ==
LOC: HO.PMCPRC 14:16
PROVIDERS: PCP Internal Medicine; Visit Provider Internal Medicine
DX: M70.61 Trochanteric bursitis, right hip (principal); M70.62 Trochanteric bursitis, left hip
CPT/HCPCS: 20610; 77002

== ENCOUNTER 2023-11-24 14:40 | Outpatient (AMB) | payer OTHER, SELFPAY ==
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
[2023-11-24 14:49] VITALS: BP 188/84; PULSE 84; O2SAT 99; BMI 41.0
== END 2023-11-24 15:09 | disposition home or self-care (01) ==
PROVIDERS: PCP Internal Medicine; Visit Provider Nurse Practitioner Family
DX: M70.61 Trochanteric bursitis, right hip (principal); M70.62 Trochanteric bursitis, left hip; M47.816 Spondylosis without myelopathy or radiculopathy, lumbar region; M53.3 Sacrococcygeal disorders, not elsewhere classified
CPT/HCPCS: 99213

== ENCOUNTER → 2023-11-24 14:40 | Outpatient (BNVA) | payer OTHER, SELFPAY | PROVIDERS: PCP Internal Medicine; Visit Provider Nurse Practitioner Family ==

== ENCOUNTER 2025-06-17 14:48 | Outpatient (AMB) | payer OTHER, SELFPAY ==
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
--- OUTSIDE RECORDS SUMMARY | 2025-06-17 15:05 | XMS_ITS | Clinical Summary ---
Author Organization [address] [place] [address] Address [address] [place] [address] Phone Care Team Providers Care Clinical Laboratory Science Professor Name Role Phone Rahul Rivero MD Primary Care Provider [phone] Allergies Active Allergy Reactions Criticality Noted Date Comments Fish Derived Anaphylaxis High 12/24/2005 Ibuprofen 12/24/2005 UPSET STOMACH FEELS RACEY Indomethacin Nausea And Vomiting 03/24/2009 Meperidine Hcl Nausea And Vomiting 05/01/2012 Salicylates 12/24/2005 UPSET STOMACH Shellfish Derived 12/05/2020 Scallop-tongue itching She eats shrimp, crab, lobster and clams Tree Nuts Anaphylaxis High 12/24/2005 walnuts only Medications spironolactone (ALDACTONE) 25 mg tablet Take 1 Tablet by mouth every 48 hours for 360 days. 12/30/19 24 Active albuterol HFA (PROAIR HFA ; PROVENTIL HFA ; VENTOLIN HFA) 90 mcg/actuation inhaler Inhale 2 Puffs into the lungs 4 times daily as needed for Cough or Wheezing. 11/06/19 24 Active FREESTYLE LANCETS MISC Use to test blood sugar twice daily 08/21/19 24 Active blood sugar diagnostic (FreeStyle Lite Strips) test strip E11.9 Use to test blood sugar once daily 08/21/19 24 Active diclofenac (VOLTAREN) 1 % topical gel APPLY 4 G TOPICALLY 4 TIMES A DAY FOR PAIN 11/24/19 24 Active sertraline (ZOLOFT) 100 mg tablet TAKE 1 TABLET (100 MG TOTAL) BY MOUTH 1 (ONE) TIME EACH DAY. 90 tablet 09/20/19 25 Active fluticasone propion-salmet Tawnya (Wixela Inhub) 100-50 mcg/dose diskus inhaler Inhale 1 puff by mouth 2 (two) times a day. Rinse mouth with water after use to reduce aftertaste and incidence of candidiasis. Do not swallow. 1 each 1 10/07/19 25 2025 Active atorvastatin (LIPITOR) 20 mg tablet Take 1 tablet (20 mg total) by mouth 1 (one) time each day. 30 each 5 10/13/19 25 Active albuterol 2.5 mg /3 mL (0.083 %) nebulizer solution Take 3 mL (2.5 mg total) by nebulization every 6 (six) hours if needed for wheezing. 120 mL 3 11/09/19 25 Active losartan (COZAAR) 50 mg tablet Take 1 tablet (50 mg total) by mouth 1 (one) time each day. 90 each 1 02/12/20 25 2025 Active calcitrioL (ROCALTROL) 0.25 mcg capsule TAKE 1 CAPSULE BY MOUTH DAILY FOR 360 DAYS. 30 capsule 05/13/20 25 Active omeprazole (PriLOSEC) [address] capsule TAKE 1 CAPSULE BY MOUTH EVERY DAY 90 capsule 1 05/25/20 25 Active tirzepatide (Mounjaro) 10 mg/0.5 mL injectionIndic ations:Class 1 obesity due to excess calories with serious comorbidity and body mass index (BMI) of 31.0 to 31.9 in adult,Type 2 diabetes mellitus without complication, without long-term current use of insulin ([facility] V24, [facility] V28) Inject 0.5 mL (10 mg total) under the skin every 7 (seven) days. 2 mL 5 06/14/20 25 2025 Active omeprazole (PriLOSEC) [address] capsule Take 1 Capsule by mouth daily. 90 capsule 1 09/29/19 25 2024 Discontinued tirzepatide (Mounjaro) 10 mg/0.5 mL injectionIndic ations:Class 1 obesity due to excess calories with serious comorbidity and body mass index (BMI) of 31.0 to 31.9 in adult,Type 2 diabetes mellitus without complication, without long-term current use of insulin ([facility] V24, [facility] V28) INJECT 10 MG UNDER THE SKIN ONE DAY A WEEK 2 mL 05/16/20 25 2024 Discontinued(R eorder) Active Problems Problem Noted Date Diagnosed Date Dyspepsia 05/03/2024 Dysphagia 05/03/2024 Closed displaced fracture of head of left radius 07/23/2022 Type 2 diabetes mellitus without complication Overview (04/27/2025): 04/27/25 Regulatory IMO Update Chronic low back pain 02/05/2018 Vitamin D deficiency 11/03/2017 Anxiety 09/12/2016 Essential hypertension 09/12/2016 Hyperlipidemia 09/12/2016 Plantar fasciitis, bilateral 09/12/2016 Seborrheic dermatitis 12/08/2012 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 V24, [facility] V28) 06/06/2025 Telephone Bariatric Surgery [address] [address] Tatyana Mares MD 06/06/2025 Telephone Internal Medicine - [address] [address] Rahul Rivero MD 05/24/2025 Telephone Internal Medicine - [address] [phone] Rahul Rivero MD 05/13/2025 1:15 PM EDT Office Visit Internal Medicine - [address] [phone] Cassy Benitez, ABRIL Sciatica of right side (Primary Dx); Chronic kidney disease, unspecified CKD stage 04/28/2025 Telephone Internal Medicine - [address] [phone] Rahul Rivero MD 04/15/2025 Telephone Internal Medicine - [address] [phone] Rauhl Rivero MD 04/11/2025 Telephone Bariatric Surgery - [place] [address] [facility] [address] [place] [phone] Tatyana Mares MD from Last 3 Months Immunizations Immunization Administration Dates Next Due H1N1 Inj Preservative Free 08/02/2009 Influenza Quadravalent, MDCK , 0.5ml, preservative free (Flucelvax) 6mo and older 05/22/2022,04/08/2019,05/08/2018,08/25 Influenza Quadrivalent, 0.5m l, preservative free (Fluarix; FluLaval; Fluzone) ages 6mo and older (Afluria) 3yo and older 04/12/2020 Influenza trivalent, 0.5mL, preservative free (Fluarix; FluLaval; Fluzone) ages 6mo and older (Afluria) 3 years and older 04/19/2024 Influenza trivalent, with pr eservative (Fluzone; Afluria) 6mo and older 05/16/2014,07/02/2012,05/22/2011,06/06,04/10/2009,05/31/2008,06/23/2007 ,07/01/2005 Pfizer SARS-CoV-2 COVID-19, mRNA, LNP-S, preservative free 01/17/2021,12/27/2020 Pneumococcal polysaccharide 23 valent (Pneumovax 23) 2yo and older 03/08/2015 Tdap Tetanus diptheria acell ular pertussis (Boostrix; Adacel) 7yo and older 01/16/2012 Zoster recombinant (Shingrix ) 19yo and older 09/03/2024 Surgical History Surgery Date Site/Laterality Comments OTHER SURGICAL HISTORY -2000 PROCEDURE: HISTORICAL D&C TUBAL LIGATION PROCEDURE: HISTORICAL TUBAL LIGATION COLONOSCOPY 05/01/2012 PROCEDURE: HISTORICAL COLONOSCOPY; COMMENT: normal INCISIONAL HERNIA REPAIR 05/25/2015 PROCEDURE: WI IMPLANT MESH OPN HERNIA RPR/DEBRIDEMENT CLOSURE; COMMENT: Dr Laura Benjamin ESOPHAGOGASTRODUODENOSCOPY 06/24/2022 PROCEDURE: WI ESOPHAGOGASTRODUODENOSCOPY TRANSORAL DIAGNOSTIC; COMMENT: esophagitis/wide GE stricture. compl by resp distress/cough. 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 DX:Trichorr hexis nodosa Seborrheic dermatitis 12/08/2012 DX:Seborrh eic dermatitis; COMMENT: psoriasis of scalp Essential hypertension 09/12/2016 DX:Essent ial hypertension Hyperlipidemia 09/12/2016 DX:Hyperlipidemi a Anxiety 09/12/2016 DX:Anxiety Chronic low back pain 02/05/2018 DX:Chronic low back pain Dysphagia DX:Dysphagia Dyspepsia DX:Dyspepsia Asthma DX:Asthma Depressive disorder DX:Depressiv e disorder Type 2 diabetes mellitus wit hout complication 10/07/2019 DX:Type 2 diabetes mellitus without complication (HCC) Family History Medical History Relation Name Comments Breast cancer Aunt mat dx ?70s >50's No Known Problems Brother Hypertension Mother Other: covid 19 Mother Breast cancer Mother's side maternal cous in Colon cancer Mother's side maternal cousi n Other cancer Mother's side maternal uncle prostate cs Ovarian cancer Mother's side maternal cou sin Breast cancer Other 8+ m 1st cousins 30-40s Relation Name Status Comments Aunt mat dx ?70s Alive Brother Alive Father Alive unknown, he lef t when pt was 10 y/o Mother Mother's side Other 8+ m 1st cousins 30-40s Other Social History Tobacco Use Types Packs/Day Years Used Date Smoking Tobacco: Never Smokeless Tobacco: Never Alcohol Use Standard Drinks/Week Comments No 0 (1 standard drink = 0.6 oz pur e alcohol) Comments No Sex and Gender Information Value Date Recorded Sex Assigned at Not on file Legal Sex Female 7:13 PM EST Gender Identity Not on file Sexual Orientation Not on file Obstetrics History Last Filed Vital Signs Vital Sign Reading Time Taken Comments Blood Pressure 109/74 06/14/2025 1:32 PM EST Pulse 88 06/14/2025 1:32 PM EST Temperature 36.6 C (97.8 F) 06/14/2025 1:32 PM EST Respiratory Rate 12 11/30/2024 1:58 PM EDT Oxygen Saturation 100% 02/09/2025 2:11 PM EDT Inhaled Oxygen Concentration - - Weight 77.1 kg (170 lb) 06/14/2025 1:32 PM EST Height 165.1 cm (5' 5 ) 06/14/2025 1:32 PM EST Body Mass Index 28.29 06/14/2025 1:32 PM EST Plan of Treatment Upcoming Encounters Date Type Department Care Team (Late st Contact Info) Description 12/27/2025 3:00 PM EDT Office Visit [facility] - [facility] [address] [place] [address] Roberto Lui MD [address] [place] [address] 12/29/2025 2:45 PM EDT Office Visit Bariatric Surgery - [place] [address] [place] [address] Tatyana Mares MD [address] [place] [address] Health Maintenance Due Date Last Done Comments Diabetes: Annual Retina Eye Exam 1971 RSV Immunization Adult Patients (1 - Risk 50-74 years 1-dose series) 2011 Pneumococcal Vaccine: 50+ Years (2 of 2 - PCV) 03/08/2016 03/08/2015 DTaP,Tdap,and Td Vaccines (2 - Td or Tdap) 01/15/2022 01/16/2012 Colorectal Cancer Screening: FIT-DNA (Cologuard) 07/06/2022 HIV Screening 07/06/2022 Social Influencers of Health Screening 07/06/2022 Breast Cancer Screening 11/11/2023 11/11/19 22, 05/08/2020, 03/12/2019, Additional history exists Depression Screening 07/28/2024 Zoster Vaccines (2 of 2) 10/29/2024 09/03/2024 Diabetes: Annual Foot Exam 11/05/2024 11/06/2023 Diabetes: Blood Sugar Control Test (HGBA1C) 03/07/2025 09/07/2024, 03/22/2024, 03/22/2024 COVID-19 Vaccine ( season) 2025 07/27/2022, 08/14/2021, 01/17/2021, Additional history exists Influenza Vaccine (#1) 2025 , 05/22/2022, 04/12/2020, Additional history exists Diabetes: Annual Urine Albumin-Creatinine Ratio (uACR) 04/19/2025 04/19/2024 Diabetes: Annual GFR (Glomerular Filtration Rate) 02/11/2026 02/11/2025, 04/19/2024, 04/19/2024, Additional history exists Hypertension/CHF/CAD Annual BMP Blood Test 02/11/2026 02/11/2025, 04/19/2024, 04/19/2024, Additional history exists Cervical Cancer Screening: HPV 02/02/2029 02/03/2024 Cholesterol Screening (Lipid Panel) 02/11/2030 02/11/2025, 09/07/2024, 04/19/2024, Additional history exists Hepatitis C Screening Completed 08/10/2018 HIB Vaccines Aged Out No longer eligi ble based on patient's age to complete this topic HPV Vaccines Aged Out No longer eligi ble based on patient's age to complete this topic Hepatitis A Vaccines Aged Out No long er eligible based on patient's age to complete this topic Hepatitis B Vaccines Aged Out No long er eligible based on patient's age to complete this topic IPV Vaccines Aged Out No longer eligi ble based on patient's age to complete this topic MMR Vaccines Aged Out No longer eligi ble based on patient's age to complete this topic Meningococcal ACWY Vaccine Aged Out N o longer eligible based on patient's age to complete this topic Meningococcal B Vaccine Aged Out No l onger eligible based on patient's age to complete this topic RSV Immunization Patients Under 20 months Aged Out No longer eligible based on patient's age to complete this topic Varicella Vaccines Aged Out No longer eligible based on patient's age to complete this topic Procedures Procedure Name Priority Date/Time Associated Diagnosis Comments BASIC METABOLIC PANEL Routine 02/11/2025 3:09 PM EDT Hyperlipidemia, unspecified hyperlipidemia type Essential hypertension LIPID PANEL WITH REFLEX TO DIRECT LDL Routine 02/11/2025 3:09 PM EDT Hyperlipidemia, unspecified hyperlipidemia type Essential hypertension HEMOGLOBIN A1C Routine 09/07/2024 12:31 PM EST Class 1 obesity due to excess calories with serious comorbidity and body mass index (BMI) of 31.0 to 31.9 in adult URINE ALBUMIN CREATININE RATIO Routine 04/19/2024 HPV Routine 02/03/2024 DIABETES FOOT EXAM Routine 11/06/2023 [facility] SCREENING DIGITAL Routine 11/10/2021 4:40 PM EDT Encounter for screening mammogram for malignant neoplasm of breast HEPATITIS C SCREENING Routine 08/10/2018 from Last 3 Months or Most Recently Relevant to Health Maintenance Results * Lipid panel with reflex to direct LDL (02/11/2025 3:09 PM EDT) Cholesterol 139 0 - 200 mg/dL LAB CHEMISTRY METHOD 02/11/2025 7:39 PM EDT [facility] Triglycerides 96 0 - 150 mg/dL LAB CHEMISTRY METHOD 02/11/2025 7:39 PM EDT [facility] HDL 50 >=40 mg/dL LAB CHEMISTRY METHOD 02/11/2025 7:39 PM EDT [facility] LDL Calculated 70 0 - 100 mg/dL LAB CHEMISTRY METHOD 02/11/2025 7:39 PM EDT [facility] VLDL Cholesterol Van 19.2 mg/dL LAB CHEMISTRY METHOD 02/11/2025 7:39 PM EDT [facility] Non HDL Chol. (LDL+VLDL) 89 <145 mg/dL LAB CHEMISTRY METHOD 02/11/2025 7:39 PM EDT [facility] Chol/HDL Ratio 2.8 0.0 - 4.4 LAB CHEMISTRY METHOD 02/11/2025 7:39 PM EDT [facility] Blood Venous blood specimen / Unknown Venipuncture / Unknown 02/11/2025 3:09 PM EDT 02/11/2025 3:09 PM EDT us Rahul Rivero MD LAB BLOOD ORDERABLES Final Res ult [facility] [address] [place] [address], [place] [phone] * (ABNORMAL) Basic metabolic panel (02/11/2025 3:09 PM EDT) Sodium 141 133 - 145 mmol/L LAB CHEMISTRY METHOD 02/11/2025 7:39 PM EDT [facility] Potassium 4.0 3.5 - 5.5 mmol/L LAB CHEMISTRY METHOD 02/11/2025 7:39 PM EDT [facility] Chloride 109 96 - 110 mmol/L LAB CHEMISTRY METHOD 02/11/2025 7:39 PM EDT [facility] CO2 27 21 - 32 mmol/L LAB CHEMISTRY METHOD 02/11/2025 7:39 PM [facility] Anion Gap 5 3 - 11 LAB CHEMISTRY METHOD 02/11/2025 7:39 PM [facility] Glucose 75 70 - 100 mg/dL LAB CHEMISTRY METHOD 02/11/2025 7:39 PM [facility] BUN 16 5 - 25 mg/dL LAB CHEMISTRY METHOD 02/11/2025 7:39 PM [facility] Creatinine 1.65(H) 0.50 - 1.10 mg/dL LAB CHEMISTRY METHOD 02/11/2025 7:39 PM [facility] eGFR 35(L) >=60 mL/min/1. 73m2 LAB CHEMISTRY METHOD 02/11/2025 7:39 PM [facility] Comment:Calculation based on the Chronic Kidney Disease Epidemiology Collaboration (CKD-EPI) equation refit without adjustment for race. BUN/Creatinine Ratio 9.7 LAB CHEMISTRY METHOD 02/11/2025 7:39 PM [facility] Calcium 9.3 8.5 - 10.5 mg/dL LAB CHEMISTRY METHOD 02/11/2025 7:39 PM [facility] Blood Venous blood specimen / Unknown Venipuncture / Unknown 02/11/2025 3:09 PM EDT 02/11/2025 3:09 PM EDT us Rahul Rivero MD LAB BLOOD ORDERABLES Final Res ult [facility] [address] [place] [address], * Hemoglobin A1c (09/07/2024 12:31 PM EST) Hemoglobin A1C 6.1 <6.5 % LAB CHEMISTRY METHOD 09/07/2024 9:26 PM EST [facility] Mean Bld Glu Estim. 128 mg/dL LAB CHEMISTRY METHOD 09/07/2024 9:26 PM EST [facility] Blood Venous blood specimen / Unknown Venipuncture / Unknown 09/07/2024 12:31 PM EST 09/07/2024 12:31 PM EST us Tatyana Mares MD LAB BLOOD ORDERABLES Final R esult [facility] [address] [place] [address], * Urine Albumin Creatinine Ratio (04/19/2024) Pathologist [facility] Urine Albumin Creatinine Ratio Abstracted Historical Provider HEALTH MAINTENANCE Final Result * Cervical Cancer Screening: HPV (02/03/2024) Pathologist [facility] Cervical Cancer Screening: HPV Abstracted Historical Provider HEALTH MAINTENANCE Final Result * Diabetes Foot Exam (11/06/2023) [facility] Diabetes: Annual Foot Exam Abstracted Historical Provider HEALTH MAINTENANCE Final Result * WENDY SCREENING DIGITAL (11/10/2021 4:40 PM EDT) Anatomical Region Laterality Modality Mammography 11/08/2021 10:4 3 AM EDT Narrative 11/10/2021 4:[address] [facility] Diagnostic Imaging Department [address] [place] [address] Patient: THANIA DE ANDA D.O.B./Age/Sex: 1960 - 61 - F Unit#: [id number] Location/Status: SPDIMAM/REG CLI Mnemonic/Ordering Site: DIGSC/SPMAM Ordering Physician: RAHUL RIVERO MD Wendy Screening Digital - 11/10/21 - 1026 EXAM: Wendy Screening Digital EXAM DATE AND TIME: 11/10/2021 10:26 AM HISTORY: Screening. Family history of breast carcinoma including maternal cousins and maternal great aunt. COMPARISON: 05/08/20, 03/12/19, 03/06/18 TECHNIQUE: CC and MLO views of both breasts were obtained using full field digital mammography. Bilateral digital breast tomosynthesis was performed in the MLO projection. Computer aided detection with the [employer] 7.2-H was employed. TISSUE DENSITY: b. There are scattered areas of fibroglandular density. FINDINGS: No suspicious masses, grouped microcalcifications, or areas of architectural distortion are seen. The skin and vascularity are unremarkable. IMPRESSION: Stable mammographic appearance of the breasts. No evidence of malignancy is seen. A negative mammogram in the presence of a clinically suspicious palpable abnormality does not preclude the possibility of malignancy or alter the indications for biopsy. BI-RADS: Category 1: Negative RECOMMENDATION(S): 1: Routine screening mammogram BILATERAL in 1 year. [id number], [id number] 3341F, 7025F Dictating Physician: VIVIANA CARPENTER MD Electronically Signed by: VIVIANA CARPENTER MD Dic Date/Time: 11/10/21 1639 Sign date/Time: 11/10/21 1640 Procedure Note Viviana Carpenter MD - 07/17/[address] [facility] Diagnostic Imaging Department [address] [place] [address] Patient: THANIA DE ANDA /Age/Sex: 1960 - 61 - F Unit#: [id number] Location/Status: SPDIMAM/REG CLI Mnemonic/Ordering Site: [facility] Ordering Physician: RAHUL RIVERO MD Wendy Screening Digital - 11/10/21 - 1026 EXAM: [facility] Screening Digital EXAM DATE AND TIME: 11/10/2021 10:26 AM HISTORY: Screening. Family history of breast carcinoma includingmaternal cousins and maternal great aunt. COMPARISON: 05/08/20, 03/12/19, 03/06/18 TECHNIQUE: CC and MLO views of both breasts were obtained using fullfield digital mammography. Bilateral digital breast tomosynthesis was performedin the MLO projection. Computer aided detection with the [employer] employed. TISSUE DENSITY: b. There are scattered areas of fibroglandular density. FINDINGS: No suspicious masses, grouped microcalcifications, or areas ofarchitectural distortion are seen. The skin and vascularity are unremarkable. IMPRESSION: Stable mammographic appearance of the breasts. No evidence of malignancyis seen. A negative mammogram in the presence of a clinically suspicious palpable abnormality does not preclude the possibility of malignancy or alter the indications for biopsy. BI-RADS: Category 1: Negative RECOMMENDATION(S): 1: Routine screening mammogram BILATERAL in 1 year. 70447, 87535 3341F, 7025F Dictating Physician: VIVIANA CARPENTER MD Electronically Signed by: VIVIANA CARPENTER MD Dic Date/Time: 11/10/21 5889 Sign date/Time: 11/10/21 1640 Rahul Rivero MD IMG BI PROCEDURES Final Result * Hepatitis C Screening (08/10/2018) Hepatitis C Screening Abstracted us Historical Provider HEALTH MAINTENANCE Final Result from Last 3 Months or Most Recently Relevant to Health Maintenance Insurance * Guarantor: Thania De Anda Account Type Relation to Patient Date of Phone Billing Address Personal/Family Self 1960 [phone] x26 (Work) [address] [place] [address] [facility] Advance Directives Documents on File Type Date Recorded 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 Health Care Decision (hx) 05/29/2015 AD LADD DIRECTIVE Health Care Decision (hx) 05/29/2015 AD LADD DIRECTIVE Health Care Decision (hx) 05/29/2015 AD LADD DIRECTIVE Health Care Decision (hx) 05/29/2015 AD LADD DIRECTIVE Health Care Decision (hx) 05/29/2015 AD LADD DIRECTIVE Health Care Decision (hx) 05/29/2015 AD LADD DIRECTIVE Health Care Decision (hx) 05/29/2015 AD LADD DIRECTIVE Health Care Decision (hx) 05/29/2015 AD LADD DIRECTIVE Health Care Decision (hx) 05/29/2015 AD LADD DIRECTIVE Health Care Decision (hx) 05/29/2015 AD LADD DIRECTIVE Health Care Decision (hx) 05/29/2015 AD LADD DIRECTIVE Health Care Decision (hx) 05/29/2015 AD LADD DIRECTIVE Health Care Decision (hx) 05/25/2015 AD LADD DIRECTIVE Health Care Decision (hx) 05/25/2015 AD LADD DIRECTIVE Health Care Decision (hx) 05/25/2015 AD LADD DIRECTIVE Health Care Decision (hx) 05/25/2015 AD LADD DIRECTIVE Health Care Decision (hx) 05/25/2015 AD LADD DIRECTIVE Health Care Decision (hx) 05/25/2015 AD LADD DIRECTIVE Health Care Decision (hx) 05/25/2015 AD LADD DIRECTIVE Health Care Decision (hx) 05/25/2015 AD LADD DIRECTIVE Health Care Decision (hx) 05/25/2015 AD LADD DIRECTIVE Health Care Decision (hx) 05/25/2015 AD LADD DIRECTIVE Health Care Decision (hx) 05/25/2015 AD LADD DIRECTIVE Health Care Decision (hx) 05/25/2015 AD LADD DIRECTIVE Care Teams Clinical Laboratory Science Professor Relationship Specialty Start Date End Date Rahul Rivero MD [address] [place] [address] PCP - General Internal Medicine 06/06/20
[2025-06-17 15:07] VITALS: BP 147/82; PULSE 87; O2SAT 100; BMI 27.1
== END 2025-06-17 15:22 | disposition home or self-care (01) ==
PROVIDERS: PCP Internal Medicine; Visit Provider Nurse Practitioner Family
DX: M51.369 Other intervertebral disc degeneration, lumbar region without mention of lumbar back pain or lower extremity pain (principal); M47.817 Spondylosis without myelopathy or radiculopathy, lumbosacral region; M53.3 Sacrococcygeal disorders, not elsewhere classified
CPT/HCPCS: 99214; G2211